=== PATIENT | female | born 1995 | race Hispanic/Latino ===

== ENCOUNTER 2020-06-11 20:49 | Emergency (ER) | payer SELFPAY ==
[~2020-06-11 20:49] MED LIST: PRENATAL1 TA1 PO; TAM75CAP PO
[2020-06-11] MEDS ORDERED: CLARITIN EYE OU (21:29)
[2020-06-11 21:45] VITALS: BP 133/77
== END 2020-06-11 21:45 | disposition home or self-care (01) | DRG 125 ==
LOC: ED 20:49
DX: H10.89 Other conjunctivitis (principal)